=== PATIENT | female | born 1965 | race Caucasian/White ===

== ENCOUNTER 2019-02-16 06:38 | Inpatient (IN) | payer BC ==
[~2019-02-16] VITALS: Ht 162.6 cm; Wt 67.7 kg
--- NOTE | 2019-02-16 06:04 | NUR ---
NOTICED PATIENT STARTED HER OWN TPN.
[~2019-02-16 06:38] MED LIST: BUTACC PO; CYCL5TAB PO; DABI75CA5 PO; DILT120C44 PO; DIPH2.5T73 PO; DRON400T PO; FURO40TA4 PO; LEVO25TA6 PO; LORA-622 PO; MONT10TA23 PO; NITR0.4S29 SL; NUTRTAB41 PO; POTA10TA51 PO; TRAM-711 PO
[2019-02-16] MEDS ORDERED: LIDOCAINE 2%HCL (LOCAL ANESTH.) INJ 20ML MDV ONE ×2 (07:30→08:00)
[2019-02-16] MEDS ORDERED: fentaNYL CITRATE 100 MCG/2 ML VL ONE (07:40)
[2019-02-16] MEDS ORDERED: MIDAZOLAM HCL 1MG/1ML-2 ML VIAL ONE (07:40)
[2019-02-16] MEDS ORDERED: ceFAZolin 1GM/50ML 100 ML IV ONE (08:36)
[2019-02-16] MEDS ORDERED: ONDANSETRON HCL 4 MG/2 ML VIAL IV PRN (10:45)
[2019-02-16] MEDS ORDERED: ACETAMINOPHEN 500 MG TAB PO PRN (10:45)
[2019-02-16] MEDS ORDERED: NITROGLYCERIN 0.4 MG SL TAB SL PRN (10:45)
[2019-02-16] MEDS ORDERED: LORATADINE 10 MG TAB PO ONE (11:15)
[2019-02-16] MEDS ORDERED: DRONEDARONE HCL 400 MG TAB PO ONE (11:15)
[2019-02-16] MEDS ORDERED: DABIGATRAN 75 MG CAP PO ONE (11:15)
[2019-02-16] MEDS ORDERED: CYCLOBENZAPRINE HCL 10 MG TAB PO PRN (11:15)
[2019-02-16] MEDS ORDERED: MONTELUKAST SODIUM 10 MG TAB PO ONE (11:15)
[2019-02-16] MEDS ORDERED: FUROSEMIDE 40 MG TAB PO PRN (11:15)
[2019-02-16] MEDS ORDERED: LEVOTHYROXINE SODIUM 25 MCG TAB PO ONE (11:15)
[2019-02-16] MEDS ORDERED: traMADol HCL 50 MG TAB PO SCH (14:00)
[2019-02-16] MEDS: SODIUM CHLOR 0.9% PF (SALINE LOCK) 10ML VIAL/SYR IV SCH ×2 (14:26→22:53)
[2019-02-16] MEDS ORDERED: PANC24002 PO ×2 (14:44)
[2019-02-16] MEDS ORDERED: PANCREATIC ENZYMES PO SCH ×2 (15:00→18:00)
--- NOTE | 2019-02-16 15:20 | NUR ---
ADMIT PATIENT TO FLOOR S/P BUSINESS SYSTEMS MANAGER PROCEDURE, AFTER SBAR RECEIVED. 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 PATIENT DRESSING TO LEFT GROIN CLEAN DRY AND INTACT. NO S/S OF DISTRESS. PATIENT PICC LINE FROM HOME TO RIGHT UPPER ARM, WILL OBTAIN ORDERS TO ACCESS. FAMILY AT BEDSIDE. Addendum: 02/16/19 at 1526 by RIA SIMON RN PER REPORT, MEDICATIONS IN eMAR NOT YET GIVEN. WILL FOLLOW THROUGH WITH eMAR ORDERS.
[2019-02-16] MEDS ORDERED: CREON 24000 UNIT PO PRN (15:30)
--- NOTE | 2019-02-16 15:45 | NUR ---
CLARIFICATION OF ORDERS FROM MD ENRIQUE. SPOKE WITH , CLARIFICATION TO GIVE PRADAXA PER ORDERS NOW. NEW ORDERS GIVEN READ BACK AND VERIFIED. SEE ORDERS. WILL FOLLOW THROUGH WITH NEW ORDERS.
[2019-02-16] MEDS: POTASSIUM CHL 10 Meq TABLET PO SCH (16:01)
[2019-02-16] MEDS: DILTIAZEM HCL 120MG ER CAP PO SCH (16:11)
[2019-02-16 16:39] VITALS: BP 130/81
--- NOTE | 2019-02-16 18:20 | NUR ---
CALLED PHARMACY TO DISPENSE PATIENT OWN MEDICATION STATED THEY WOULD SEND IT SOON. WILL CONTINUE TO MONITOR.
--- NOTE | 2019-02-16 19:07 | NUR ---
CALLED PHARMACY FOR PATIENT OWN MEDICATION. STATED THEY WOULD SEND IT NOW. WILL OBTAIN AND ADMINISTER PER ORDERS.
[2019-02-16] MEDS: CREON 24000 UNIT PO SCH (19:12)
--- NOTE | 2019-02-16 19:14 | NUR ---
CALLED DIETARY FOR MEAL TRAY. LEFT MESSAGE. WILL ENDORSE TO INSURANCE VERIFICATION REP.
--- NOTE | 2019-02-16 19:20 | NUR ---
PATIENT GIVEN EXTRA MEAL TRAY ON UNIT. WILL INFORM IMPREGNATOR ELECTROLYTIC CAPACITORS.
--- NOTE | 2019-02-16 19:21 | NUR ---
CLOSING NOTE ENDORSED CARE TO MARKET MAKER RN. PATIENT IN BED LOW LOCK POSITION, CALL LIGHT IN REACH. NO S/S OF DISTRESS. TPN ADMINISTERED BY PATIENT, RUNNING PER MD ORDERS. NO S/S OF DISTRESS. LEFT GROIN DRESSING CLEAN, DRY, AND INTACT.
[2019-02-16 20:00] VITALS: BP 126/79
[2019-02-16] MEDS ORDERED: traMADol HCL 50 MG TAB PO ONE (20:00)
[2019-02-16] MEDS ORDERED: CYCLOBENZAPRINE HCL 10 MG TAB PO ONE (20:00)
[2019-02-16 21:45] VITALS: BP 126/79
[2019-02-16] MEDS: SULFAMETHOX W/TRIMETH(800/160MG) DS TAB PO SCH (21:47)
[2019-02-16] MEDS ORDERED: DIPHENOXYLATE W/ATROPINE 2.5 MG TAB PO SCH (22:00)
--- NOTE | 2019-02-16 22:30 | NUR ---
PATIENT STARTED HER OWN TPN ADMINISTRATION.
[2019-02-16] MEDS: DABIGATRAN 75 MG CAP PO SCH (22:53)
[2019-02-16] MEDS: DRONEDARONE HCL 400 MG TAB PO SCH (22:53)
[2019-02-17 04:45] VITALS: BP 104/60
[2019-02-17] MEDS: SODIUM CHLOR 0.9% PF (SALINE LOCK) 10ML VIAL/SYR IV SCH (05:52)
--- NOTE | 2019-02-17 05:59 | NUR ---
Opening Shift Note Received report from edith Way RN. Assumed care of patient, awake and alert. No S/S of distress/SOB or pain. Instructed on POC and to call for assist PRN, will continue to monitor for changes Q1hr and PRN. Addendum: 02/17/19 at 0713 by ELIUD ROSARIO RN RN TIME IS 191402/16/19
--- NOTE | 2019-02-17 06:32 | NUR ---
PATIENT IS RESTING IN BED WITH EYES CLOSED, NO DISTRESS NOTED AND PATIENT DENIES PAIN.
--- NOTE | 2019-02-17 06:55 | NUR ---
DR ENRIQUE CALLED AND GIVE AN ORDER TO ADMINISTER MULTAQ AND PRADAXA THIS MORNING, DRAW OUT THE AIR FROM PRESSURE DRESSING TO LEFT GROIN, CHANGE DRESSING WITH CLEAN GAUGE AND TAPE IT, AND VERBAL ORDER TO DISCHARGE PATIENT HOME THIS MORNING.
[2019-02-17 08:00] VITALS: BP 127/79
[2019-02-17] MEDS: CREON 24000 UNIT PO SCH (09:06)
[2019-02-17] MEDS ORDERED: MONTELUKAST SODIUM 10 MG TAB PO SCH (10:00)
[2019-02-17] MEDS ORDERED: LEVOTHYROXINE SODIUM 25 MCG TAB PO SCH (10:00)
[2019-02-17] MEDS ORDERED: LORATADINE 10 MG TAB PO SCH (10:00)
[2019-02-17] MEDS: POTASSIUM CHL 10 Meq TABLET PO SCH (10:04)
[2019-02-17] MEDS: SULFAMETHOX W/TRIMETH(800/160MG) DS TAB PO SCH (10:04)
[2019-02-17] MEDS: DILTIAZEM HCL 120MG ER CAP PO SCH (10:04)
[2019-02-17] MEDS: DRONEDARONE HCL 400 MG TAB PO SCH (10:05)
[2019-02-17] MEDS: DABIGATRAN 75 MG CAP PO SCH (10:05)
--- NOTE | 2019-02-17 10:40 | NUR ---
Patient medications picked up from inpatient pharmacy and given to patient.
--- NOTE | 2019-02-17 10:44 | NUR ---
Discharge instructions given as ordered. Encourage to follow up with PMD as instructed. All questions and concerns addressed. Patient verbalized understanding. Medication reconciliation form completed and copy given to patient. Home medications held in Pharmacy returned to patient, and needed vaccines given. Pt has PICC line from home, sent home with PICC line intact. Telemetry unit returned to ICU. Patient ambulated with all personal belongings, accompanied by staff and family member. No distress noted at time of departure.
== END 2019-02-17 10:44 | disposition home or self-care (01) | DRG 274 ==
LOC: CATH 06:38 → TELE 15:26 → TELE-CENTR 15:27
PROVIDERS: ADMIT Specialist; ATTEND Specialist
PROC: 02583ZZ Destruction of Conduction Mechanism, Percutaneous Approach (ICD-10-PCS; principal; 2019-02-16)
PROC: 02K83ZZ Map Conduction Mechanism, Percutaneous Approach (ICD-10-PCS; 2019-02-16)
PROC: 4A023FZ Measurement of Cardiac Rhythm, Percutaneous Approach (ICD-10-PCS; 2019-02-16)
PROC: 4A0234Z Measurement of Cardiac Electrical Activity, Percutaneous Approach (ICD-10-PCS; 2019-02-16)
DX: I48.0 Paroxysmal atrial fibrillation (principal); I48.92 Unspecified atrial flutter; I47.1 Supraventricular tachycardia; Z95.828 Presence of other vascular implants and grafts; Z88.5 Allergy status to narcotic agent; I25.2 Old myocardial infarction; Z88.1 Allergy status to other antibiotic agents; Z88.8 Allergy status to other drugs, medicaments and biological substances; Z91.013 Allergy to seafood
CPT/HCPCS: 93613; 93656; 99152; 99153; G0378; J0690; J2250